=== PATIENT | male | born 1940 | race Caucasian/White ===

== ENCOUNTER 2017-02-10 14:35 | Inpatient (IN) | payer OTHER, MEDICARE ==
[2017-02-10] VITALS (12 sets, daily range): BP systolic 105–139; BP diastolic 54–68
[~2017-02-10] VITALS: Ht 165.1 cm; Wt 65.8 kg
--- NOTE | ~2017-02-10 | HC ---
[facility] [place] [address] CONSULTATION Name: STEPHANIEOFELIA Room #: 302-P [facility] IN ..#: [id number] Admission: 02/10/17 Attend Phys: Tash Nuñez MD Discharge: Date of : 40 Report #: [id number] THIS REPORT FOR: //name// CC: Dr. Brock Farrar MD DATE OF SERVICE: 02/10/2017 HISTORY OF PRESENT ILLNESS: The patient is a 76-year-old gentleman with severe oxygen-dependent lung disease. He was admitted about a week ago with increasing shortness of breath and left-sided pneumonia. This was despite failed outpatient treatment with oral antibiotics. He had a nonproductive cough without hemostasis. No fevers or chills. During this hospitalization, he developed melanotic stools and over the past couple of days, he has received 5 units of packed red cells. He has developed increasing lower extremity edema in the setting of fluid resuscitation and volume expansion. His presenting EKG was normal with the exception of isolated atrial premature complexes and initial troponin was elevated at 0.16, consistent with supply demand mismatch. He does have a history of prior LAD stenting in 1997, by Dr. Hogan prior to his stenting procedure he had, what was described as fairly typical angina, he has had no recurrence of this. He denies orthopnea or paroxysmal nocturnal dyspnea. He denies recent fevers or chills. ALLERGIES: HE IS ALLERGIC TO RITUXAN. MEDICATIONS: Include aspirin 81 mg daily, atorvastatin 20 mg daily, DuoNeb, Imbruvica 420 mg daily, losartan 50 mg daily, and metoprolol 50 mg daily. PAST MEDICAL HISTORY: Medical records have been reviewed and include a history of dyslipidemia, CLL, coronary stenting, and steroid-induced diabetes, he has not been on steroids recently. SOCIAL HISTORY: Significant former smoker. He is retired from variety of jobs. FAMILY HISTORY: Unremarkable for premature coronary artery disease that is notable for diabetes and cancer. REVIEW OF SYSTEMS: All systems negative except as that noted above. PHYSICAL EXAMINATION: GENERAL: Reveals a dyspneic gentleman who is although talking in full sentences. VITAL SIGNS: Blood pressure is 139/68, heart rate of 150 [place] [address] CONSULTATION Name: OFELIA BROWN Room #: [address] [place] [address] [place] ..#: [id number] Admission: 02/10/17 Attend Phys: Tash Nuñez MD Discharge: Date of : 40 Report #: [id number] afebrile. HEENT: There are neither xanthelasma, subcutaneous xanthomata, oral mucosa or digital cyanosis or kyphoscoliosis present. CHEST: Reveals diminished breath sounds at both bases, especially at the left base, a few expiratory wheezes. CARDIAC: Regular rate and rhythm with a normal S1, S2. ABDOMEN: Soft and nontender. EXTREMITIES: Reveal 1-2+ pedal edema. Radial pulses are 2+. NEUROLOGIC: He is alert with a nonfocal exam. LABORATORY DATA: EKG demonstrates sinus rhythm with atrial premature complexes. An echocardiogram from 2015 demonstrated an ejection fraction of 50%, significant valvular disease was absent. IMPRESSION: 1. Chronic obstructive pulmonary disease exacerbation; acute on chronic hypoxemic respiratory failure. 2. Pneumonia. 3. Gastrointestinal bleed with hemodynamic compromise, recent five unit transfusion. 4. Acute on chronic diastolic heart failure. 5. Dyslipidemia. 6. Chronic lymphocytic leukemia. RECOMMENDATIONS: 1. Intravenous diuretics. 2. Continued use of metoprolol and losartan. 3. Echocardiogram with Doppler. 4. GI and pulmonary evaluations. 5. At this point, I do not suspect an acute coronary syndrome or ischemic event. Thank you for asking me to participate in the care of this very ill gentleman. <ELECTRONICALLY SIGNED> By: Jassi Amos MD, FACC 02/14/17 1641 [id number] Jassi Amos MD, FACC /nt
--- NOTE | ~2017-02-10 | HC ---
[facility] [place] [address] CONSULTATION Name: STEPHANIEOFELIA A Room #: 237-P [facility] IN M.R.#: [id number] Admission: 02/10/17 Attend Phys: Tash Nuñez MD Discharge: Date of : 40 Report #: [id number] THIS REPORT FOR: //name// CC: Diane Amos MD [facility] Brock Correia MD DATE OF SERVICE: 02/11/2017 HISTORY OF PRESENT ILLNESS: The patient is a 76-year-old male who was admitted on 02/10/2017. He was transferred from [facility] where he was hospitalized for a GI bleed, pneumonia and respiratory failure. He is being treated down there with antibiotics, which included Zosyn and vancomycin. He has a history of COPD and is typically on 5 liters of nasal canula oxygen. He reportedly had black stools and progressive anemia at [facility] and actually had 5 units of packed cells transfused. His hemoglobin here at [facility] was 7.2 yesterday and this dropped to 5.6 this morning. He is currently in the process of receiving 2 units of packed cells. The patient is currently in the ICU. He denies any chest pain, no significant shortness of breath. He is currently on 4 liters of nasal canula oxygen. He denies any abdominal pain. He reportedly has had a history of peptic ulcer disease. He had been taking aspirin. He has a history of coronary artery disease with a history of stent placement in the past. He denies any abdominal pain at this time. He does not believe he has had melenic stools recently. He also has a history of CLL. He does complain of lower extremity edema. PAST MEDICAL HISTORY: COPD, history of GI bleed, history of SIADH, CLL, lower extremity edema, previous cardiac stent placement x 2, previous cholecystectomy, hyperlipidemia, rectal prolapse 2011, cataract surgery. ALLERGIES: To RITUXAN. SOCIAL HISTORY: Former smoker. He does report occasional alcohol use. REVIEW OF SYSTEMS: As per HPI. FAMILY HISTORY: Negative for colon cancer. CURRENT MEDICATIONS: Methylprednisolone, Zosyn, Protonix drip has been started, metoprolol, vancomycin, losartan, Lasix, albuterol, Atrovent, atorvastatin, Tylenol p.r.n., docusate p.r.n., nitroglycerin p.r.n., magnesium oxide. PHYSICAL EXAMINATION: [facility] [address] [place] [address] CONSULTATION Name: OFELIA BROWN Room #: 237-P [facility] IN [facility]#: [id number] Admission: 02/10/17 Attend Phys: Tash Nuñez MD Discharge: Date of : 40 Report #: [id number] VITAL SIGNS: Temperature is 97.6, pulse 102, blood pressure 117/56, respiratory rate is 29, O2 sats are 95% on 4 liters. GENERAL: He is alert and oriented x 3 in no acute distress. HEENT: Sclerae nonicteric. Oropharynx clear. NECK: Supple, without lymphadenopathy. CARDIOVASCULAR: Regular rate and rhythm. CHEST: With decreased breath sounds bilaterally. ABDOMEN: Soft. He is nontender, nondistended, normoactive bowel sounds. EXTREMITIES: +2 pitting edema in the lower extremities bilaterally. LABORATORY DATA: Sodium 141, potassium 4.0, chloride 106, bicarbonate 30, BUN 108, creatinine 1.7, glucose 119, AST 16, total bili 0.5, calcium 7.5, magnesium 1.8, alkaline phosphatase 22, ALT 12, total protein 3.4, albumin 1.4. INR is 1.1. The troponin was old. WBC is 20.8, hemoglobin 5.6, MCV is 88.7, platelet count is 139. Chest x-ray today, left basilar pneumonia is slightly worse with no significant pleural effusion seen. ASSESSMENT AND PLAN: Anemia, gastrointestinal bleed. The patient has had a drop in hemoglobin, history of melenic type stools apparently at [facility]. He has now been transfused again. I would recommend proceeding with an upper endoscopy today for further evaluation. Suspect upper gastrointestinal bleed. The patient states he had a colonoscopy 4 years ago and was reportedly negative. We will make further recommendations after endoscopy. In the meantime, continue PPI drip and monitoring hemoglobin closely. Thank you for allowing me to participate in his care. <ELECTRONICALLY SIGNED> By: Fausto David MD 02/12/17 1621 1025 1601 Fausto David MD /nt
--- NOTE | ~2017-02-10 | P ---
[facility] [place] [address] PROCEDURE REPORT Name: STEPHANIEOFELIA A Room #: 237-P ADM IN M.R.#: [id number] Admission: 02/10/17 Attend Phys: Tash Nñuez MD Discharge: Date of : 40 Report #: [id number] THIS REPORT FOR: //name// CC: Diane Amos MD [facility] Brock Correia MD DATE OF SERVICE: 02/11/2017 PROCEDURE PERFORMED: Upper endoscopy. HISTORY OF PRESENT ILLNESS: The patient is a 76-year-old male with a history of anemia, COPD, CLL, recent pneumonia. He is on 4 liters of nasal canula oxygen at this time. He was transferred from [facility] and apparently was transfused 5 units of packed cells during that hospitalization. His hemoglobin here dropped from 7 to 5.6 earlier this morning. He is being transfused at this time. He is currently in the ICU, denies any abdominal pain. He does have a history of peptic ulcer disease. He is now on a Protonix drip. DESCRIPTION OF PROCEDURE: The risks and benefits of the procedure were explained to the patient, those risks including but not limited to bleeding, perforation, the risk of sedation. He understood these risks and gave informed consent. The procedure was performed in the ICU. Anesthesia was given using propofol and Versed. Next, using a standard [employer] upper endoscope, the scope was placed in the patient's mouth and advanced under direct vision through the esophagus, stomach and into the second portion of the duodenum. The upper and mid esophagus were normal in appearance; however, in the distal esophagus, there was an area of what appears to be an esophageal varix. They were not columns that are typically seen but distinct area in the distal esophagus. There was no red adri sign. There was no evidence of bleeding, no clot was noted, otherwise GE junction was normal. Overall, the gastric mucosa in the fundus was normal; however, in the body and antrum, multiple ulcers were seen. Most of these ulcers were 3-4 mm in size; however, there was a single large ulcer that was approximately 2 cm in the antrum. All these ulcers were clean white based, none of which showed any visible vessel or clot. Of note, there was no blood throughout the exam today. The pylorus was normal and patent. The duodenal bulb did show some mild duodenitis, but no ulceration. The first and second portion of the duodenum were normal. The scope was then withdrawn and the procedure terminated. The patient tolerated the procedure well. IMPRESSION: 1. Multiple gastric ulcers including one large antral ulcer, suspect this may be the source of recent gastrointestinal bleed. Of note, there was no bleeding [address] [address] PROCEDURE REPORT Name: OFELIA BROWN Room #: 237-P [facility] IN M.R.#: [id number] Admission: 02/10/17 Attend Phys: Tash Nuñez MD Discharge: Date of : 40 Report #: [id number] noted on exam today. 2. Esophageal varix, although this may have caused bleeding recently. There were no signs of recent bleeding; therefore, I did not place a band on the varix. 3. Mild duodenitis. 4. Otherwise, normal upper endoscopy. RECOMMENDATIONS: 1. Continue PPI drip. 2. We will add Carafate. 3. Continue to monitor hemoglobin closely. 4. We will start clear liquids today. Thank you for allowing me to participate in his care. <ELECTRONICALLY SIGNED> By: Fausto David MD 02/12/17 1621 1055 1801 Fausto David MD /nt
--- NOTE | ~2017-02-10 | 2DMMODE ---
[facility] [address] [place] [address] 2 D/M-MODE ECHOCARDIOGRAM Name: OFELIA BROWN Room #: 237-P [facility] IN ..#: [id number] Admission: 02/10/17 Attend Phys: Tash Nuñez MD Discharge: Date of : 40 Date of Service: 02/11/17 1114 Report #: [id number] THIS REPORT FOR: //name// APPROVED REPORT Study performed: 02/11/2017 08:04:00 EXAM: Comprehensive 2D, Doppler, and color-flow Echocardiogram Patient Location: ICU Room #: [facility] Other Information Study Quality: Adequate Indications COPD Diabetes Dyspnea CAD 2D Dimensions RVDd: 39.79 mm LVEF(%): 67.62 (>50%) IVSd: 8.58 (7-11mm) LVOT Diam: 19.63 (18-24mm) LVDd: 43.49 mm PWd: 9.25 (7-11mm) Ascending Ao: 32.67 (22-36mm) LVDs: 27.24 (25-40mm) Aortic Root: 34.68 mm IVC: 13.00 mm Medina's LVEF: 67.62 % Volumes Left Atrial Volume (Systole) Single Plane 4CH: 79.97 mL Single Plane 2CH: 47.93 mL Aortic Valve AoV Peak Fabio.: 1.78 m/s AO Peak Gr.: 12.66 mmHg LVOT Max P.64 mmHg LVOT Max V: 1.63 m/s OTTO Vmax: 2.77 cm2 Mitral Valve E/A Ratio: 0.5 MV Decel. Time: 235.70 ms MV E Max Fabio.: 0.67 m/s MV A Fabio.: 1.25 m/s [facility] [address] [address] 2 D/M-MODE ECHOCARDIOGRAM Name: OFELIA BROWN [facility] #: 237[facility] [id number] Admission: 02/10/17 Attend Phys: Tash Nuñez MD Discharge: Date of : 40 Date of Service: 02/11/17 1114 Report #: [id number] MV PHT: 68.35 ms IVRT: 107.27 ms Pulmonary Valve PV Peak Fabio.: 1.47 m/s PV Peak Gr.: 8.69 mmHg Pulmonary Vein P Vein S: 0.64 m/s P Vein A: 0.40 m/s P Vein D: 0.41 m/s P Vein A Dur.: 100.3 msec P Vein S/D Ratio: 1.56 Tricuspid Valve TR Peak Fabio.: 3.00 m/s RAP Estimate: 5.00 mmHg TR Peak Gr.: 36.05 mmHg PA Pressure: 41.00 mmHg Left Ventricle The left ventricle is normal size. There is normal LV segmental wall motion. There is normal left ventricular wall thickness. Left ventricular systolic function is hyperdynamic. LVEF is >70%. Grade I - abnormal relaxation pattern. Right Ventricle The right ventricle is normal size. The right ventricular systolic function is normal. Atria The left atrium size is normal. The right atrium size is normal. Aortic Valve The aortic valve is normal in structure. No aortic regurgitation is present. There is no aortic valvular stenosis. Mitral Valve The mitral valve is normal in structure. There is no mitral valve regurgitation noted. No evidence of mitral valve stenosis. Tricuspid Valve The tricuspid valve is normal in structure. There is mild tricuspid regurgitation. The right atrial pressure is estimated at 5 mmHg. There is mild pulmonary hypertension. Pulmonic Valve The pulmonary valve is normal in structure. There is no pulmonic valvular regurgitation. [address] [address] 2 D/M-MODE ECHOCARDIOGRAM Name: OFELIA BROWN Diane Room #: 237-P [facility] IN [facility]#: [id number] Admission: 02/10/17 Attend Phys: Tash Nuñez MD Discharge: Date of : 40 Date of Service: 02/11/17 1114 Report #: [id number] Great Vessels The aortic root is normal in size. IVC is normal in size and collapses >50% with inspiration. Pericardium There is no pericardial effusion. <Conclusion> Normal to hyperdynamic LV function, LVEF is >70%. There is normal LV segmental wall motion. The aortic valve is normal in structure. No aortic valvular stenosis. The mitral valve is normal in structure. No mitral insufficiency Pulmonary artery could not be reliably ascertained There is no pericardial effusion. <ELECTRONICALLY SIGNED> By: Jassi Amos MD, [facility] 02/11/17 1114 1114 1114 Jassi Amos MD, FACC /INF
--- NOTE | ~2017-02-10 | HC ---
[facility] [place] [address] CONSULTATION Name: OFELIA BROWN Room #: 237-P [facility] IN M.R.#: [id number] Admission: 02/10/17 Attend Phys: Otilio Velasco MD Discharge: Date of : 40 Report #: [id number] THIS REPORT FOR: //name// CC: Brock Velasco DATE OF SERVICE: 02/10/2017 REASON FOR CONSULTATION: Exacerbation of chronic obstructive pulmonary disease. IMPRESSION: 1. Exacerbation of chronic obstructive pulmonary disease. 2. Acute on chronic hypoxemic respiratory failure. 3. Left lower lobe pneumonia. 4. Acute on chronic diastolic heart failure. 5. Anasarca. 6. Gastrointestinal bleed. 7. Coronary artery disease. 8. Peripheral vascular disease with prior carotid stent. 9. Chronic lymphocytic leukemia. PLAN: We will try to decrease the steroids as quickly as possible, agree with Zosyn and vancomycin. We will do legionella, strep and MRSA screens. SCDs for DVT prophylaxis. May consider venous Dopplers of upper and lower extremities. HISTORY OF PRESENT ILLNESS: A 76-year-old male recently in the hospital at for pneumonia then was in for GI bleeding and pneumonia. He comes in now with increased wheezing, cough, shortness of breath. Found to have a hemoglobin of 7.5 today after 5 units of blood. PAST MEDICAL HISTORY: ALLERGIES: RITUXAN. PAST MEDICATIONS: Prednisone, cefuroxime, azithromycin, losartan. SOCIAL HISTORY: Positive tobacco. FAMILY HISTORY: Hypertension. REVIEW OF SYSTEMS: Increasing COPD, recurrent rectal prolapse, hyponatremia, CLL. The patient complains of edema, weakness. Decreased appetite, weight gain, decreased hearing, cough, shortness of breath, dyspnea on exertion, palpitations, regular heart rate, GI diarrhea, melena poor appetite. No dysuria. Positive muscle pain, rash, bruising. SURGERIES IN PAST: Include tonsillectomy, cholecystectomy, rectal prolapse [facility] [address] [place] [address] CONSULTATION Name: STEPHANIE,OFELIA A Room #: [facility] IN [facility]#: [id number] Admission: 02/10/17 Attend Phys: Otilio Velasco MD Discharge: Date of : 40 Report #: [id number] surgery, cataract surgery. FAMILY HISTORY: Heart disease, COPD, diabetes, hypertension, positive ETOH, . PHYSICAL EXAMINATION: VITAL SIGNS: Temperature 99, pulse 120, respirations 24, BP 139/68. EYES: Negative icterus. NECK: Negative JVD, diffuse edema. LUNGS: Wheeze bilaterally. HEART: Regular, tachycardic. ABDOMEN: Bowel sounds present. LABORATORY DATA: Chest x-ray showed left infiltrate. We will follow closely with you. By: 56 [id number] Sara Rivera MD /nt
[~2017-02-10 14:35] MED LIST: ADULT LOW DOSE81 MG PO; ALBUTEROL2.5 MG/0.1 INH; APHEN325 MG PO; ASPIRIN EC81 M1; AZITHROMYCIN 2250 MG PO; CEFTIN500 MG PO; COZAAR 50 MG TA50 M1 PO; DOCUSATE SODIU100 MG PO; HYZAAR 50-12.51 EACH PO; LIPITOR 10 MG10 M1; LIPITOR20 MG PO; LOPRESSOR 50 MG50 M1 PO; PREDNISONE 10 M10 M1 PO; PREDNISONE 20 M20 M1 PO; SIMETHICON CHEW80 M1 PO; TOPROL XL25 MG
[2017-02-10] MEDS ORDERED: NITROGLYCERIN0.4 MG SUBLING (18:50)
[2017-02-10] MEDS ORDERED: LOPRESSOR50 MG PO (18:50)
[2017-02-10 18:54] LABS: ABG SAMPLE TYPE ARTERIAL; BE(vivo) 1.3 mmol/L (-2 to +3); HCO3 27.1 mmol/L (22.0-26.0); LACTATE 0.84 mmol/L (0.5-2.0); O2(CT) 10.6 mL/dL (15.0-23.0); O2Hb 94.3 % (92.0-98.0); PCO2 49.8 mmHg (35.0-45.0); PO2 88.6 mmHg (80.0-100.0); pH 7.354 (7.360-7.450); sO2 96.3 % (92.0-98.0); tCO2 28.7 mmol/L (24.0-30.0)
[2017-02-10 18:55] LABS: STICK SITE R.RADIAL
[2017-02-10] MEDS ORDERED: LIPITOR 20 MG T20 M1 PO (18:55)
[2017-02-10] MEDS ORDERED: IMBRUVICA140 MG PO (18:55)
[2017-02-10 19:14] LABS: HEMOGLOBIN 7.2 gm/dL (14.0-18.0); RDW 15.8 % (10.5-14.5)
[2017-02-10 19:16] LABS: HEMATOCRIT 21.9 % (42.0-52.0); MCHC 32.9 g/dL (28.0-37.0); MCV 88.1 fL (80.0-100.0); RBC 2.49 mil/uL (4.50-6.00)
[2017-02-10 19:34] LABS: CALCIUM 7.9 mg/dL (8.5-10.1); CREATININE 1.7 mg/dL (0.7-1.3); POTASSIUM 4.6 mmol/L (3.5-5.1)
[2017-02-10 19:37] LABS: INR 1.1; PROTIME 11.3 Seconds (9.3-11.4)
[2017-02-10 19:46] LABS: ALBUMIN 1.7 g/dL (3.4-5.0); TOTAL BILIRUBIN 0.6 mg/dL (<0.1-1.0); TOTAL PROTEIN 4.1 g/dL (6.4-8.2)
[2017-02-11] VITALS (49 sets, daily range): BP systolic 74–122; BP diastolic 33–69
[2017-02-11 05:35] LABS: WBC 20.8 thou/uL (4.0-11.0)
[2017-02-11 05:37] LABS: MCH 29.3 pg (26.0-34.0); MCV 88.7 fL (80.0-100.0); PLATELET COUNT 139 thou/uL (150-400); RBC 1.93 mil/uL (4.50-6.00); RDW 15.6 % (10.5-14.5)
[2017-02-11 05:49] LABS: ALBUMIN 1.4 g/dL (3.4-5.0); CALCIUM 7.5 mg/dL (8.5-10.1); CREATININE 1.7 mg/dL (0.7-1.3); MAGNESIUM 1.8 mg/dL (1.8-2.4); TOTAL BILIRUBIN 0.5 mg/dL (<0.1-1.0); TOTAL PROTEIN 3.4 g/dL (6.4-8.2)
[2017-02-11 06:06] LABS: MANUAL DIFF YES
[2017-02-11 06:07] LABS: HEMOGLOBIN 5.6 gm/dL (14.0-18.0)
[2017-02-11 06:08] LABS: HEMATOCRIT 17.1 % (42.0-52.0)
[2017-02-11 09:16] LABS: ABSOLUTE NEUTROPHILS 9.2 thou/uL (1.4-8.2); METAMYELOCYTES 1 %; TOTAL CELL COUNT 100
[2017-02-11 09:30] LABS: ANISOCYTOSIS 2+; MACROCYTES 1+; MICROCYTES 1+; OVALOCYTES 1+; POLYCHROMASIA SLIGHT
[2017-02-11 15:49] LABS: HEMATOCRIT 24.6 % (42.0-52.0)
[2017-02-11 15:52] LABS: HEMOGLOBIN 8.5 gm/dL (14.0-18.0)
[2017-02-12] VITALS (23 sets, daily range): BP systolic 103–138; BP diastolic 48–85
[2017-02-12 04:17] LABS: HEMATOCRIT 23.5 % (42.0-52.0); RBC 2.76 mil/uL (4.50-6.00)
[2017-02-12 04:19] LABS: HEMOGLOBIN 8.1 gm/dL (14.0-18.0); MCH 29.2 pg (26.0-34.0); MCHC 34.2 g/dL (28.0-37.0); MCV 85.2 fL (80.0-100.0); RDW 15.7 % (10.5-14.5); WBC 17.8 thou/uL (4.0-11.0)
[2017-02-12 04:41] LABS: CALCIUM 7.7 mg/dL (8.5-10.1); CREATININE 1.7 mg/dL (0.7-1.3); POTASSIUM 3.7 mmol/L (3.5-5.1)
[2017-02-13 04:24] VITALS: BP 117/62
[2017-02-13 04:49] LABS: HEMATOCRIT 21.8 % (42.0-52.0); HEMOGLOBIN 7.5 gm/dL (14.0-18.0)
[2017-02-13 04:55] LABS: CALCIUM 7.3 mg/dL (8.5-10.1); CREATININE 1.6 mg/dL (0.7-1.3); POTASSIUM 3.4 mmol/L (3.5-5.1)
[2017-02-13 09:47] VITALS: BP 115/59
[2017-02-13 16:18] VITALS: BP 120/64
[2017-02-13 18:57] VITALS: BP 130/56
[2017-02-14 02:30] VITALS: BP 145/72
[2017-02-14 06:27] LABS: HEMATOCRIT 23.4 % (42.0-52.0); HEMOGLOBIN 7.8 gm/dL (14.0-18.0); MCHC 33.2 g/dL (28.0-37.0); MCV 87.2 fL (80.0-100.0); PLATELET COUNT 147 thou/uL (150-400); RBC 2.68 mil/uL (4.50-6.00); RDW 15.4 % (10.5-14.5); WBC 16.4 thou/uL (4.0-11.0)
[2017-02-14 06:28] LABS: MANUAL DIFF YES
[2017-02-14 06:30] LABS: CALCIUM 7.9 mg/dL (8.5-10.1); CREATININE 1.6 mg/dL (0.7-1.3); POTASSIUM 3.7 mmol/L (3.5-5.1)
[2017-02-14 07:44] LABS: ABSOLUTE NEUTROPHILS 8.7 thou/uL (1.4-8.2); TOTAL CELL COUNT 100
[2017-02-14 07:46] LABS: ANISOCYTOSIS 2+; MACROCYTES 1+; MICROCYTES 1+; POLYCHROMASIA SLIGHT
[2017-02-14 08:41] VITALS: BP 123/67
[2017-02-14] MEDS ORDERED: DOXYCYCLINE 10100 MG PO (11:37)
[2017-02-14] MEDS ORDERED: METOPROLOL SUCC25 M1 PO (11:37)
[2017-02-14] MEDS ORDERED: K-DUR 20 MEQ T20 MEQ PO (11:37)
[2017-02-14] MEDS ORDERED: CARAFATE 1 GM TA1 G1 PO (11:37)
[2017-02-14] MEDS ORDERED: PROTONIX40 M1 PO (11:37)
[2017-02-14] MEDS ORDERED: TORSEMIDE20 MG PO (11:37)
[2017-02-14] MEDS ORDERED: PREDNISONE 10 M10 MG PO (11:44)
[2017-02-14 12:51] VITALS: BP 123/67
[2017-02-14 15:53] VITALS: BP 112/66
[2017-02-14 20:00] VITALS: BP 112/69
[2017-02-15 04:00] VITALS: BP 113/64
[2017-02-15 06:45] LABS: HEMATOCRIT 23.8 % (42.0-52.0); HEMOGLOBIN 7.9 gm/dL (14.0-18.0)
[2017-02-15 08:08] VITALS: BP 99/58
[2017-02-15 14:19] VITALS: BP 123/67
== END 2017-02-15 14:40 | disposition home health service (06) | DRG 377 ==
LOC: 4W 14:35 → ICU 17:51 → 3N 02-12 22:34
PROVIDERS: Hospitalist; Internal Medicine; Internal Medicine Endocrinology, Diabetes & Metabolism; Internal Medicine Gastroenterology; Internal Medicine Pulmonary Disease; Specialist
PROC: 30233N1 Transfusion of Nonautologous Red Blood Cells into Peripheral Vein, Percutaneous Approach (ICD-10-PCS; principal; 2017-02-11)
PROC: 0DJ08ZZ Inspection of Upper Intestinal Tract, Via Natural or Artificial Opening Endoscopic (ICD-10-PCS; 2017-02-11)
DX: K92.2 Gastrointestinal hemorrhage, unspecified (principal); I50.33 Acute on chronic diastolic (congestive) heart failure; J96.21 Acute and chronic respiratory failure with hypoxia; J18.1 Lobar pneumonia, unspecified organism; J18.9 Pneumonia, unspecified organism; I21.3 ST elevation (STEMI) myocardial infarction of unspecified site; J44.1 Chronic obstructive pulmonary disease with (acute) exacerbation; C91.10 Chronic lymphocytic leukemia of B-cell type not having achieved remission; J44.0 Chronic obstructive pulmonary disease with (acute) lower respiratory infection; N17.9 Acute kidney failure, unspecified; E46 Unspecified protein-calorie malnutrition; I25.10 Atherosclerotic heart disease of native coronary artery without angina pectoris; D64.9 Anemia, unspecified; E78.5 Hyperlipidemia, unspecified; Z66 Do not resuscitate; E11.65 Type 2 diabetes mellitus with hyperglycemia; E11.51 Type 2 diabetes mellitus with diabetic peripheral angiopathy without gangrene; K25.9 Gastric ulcer, unspecified as acute or chronic, without hemorrhage or perforation; Z88.8 Allergy status to other drugs, medicaments and biological substances; Z98.62 Peripheral vascular angioplasty status; Z87.891 Personal history of nicotine dependence; Z98.42 Cataract extraction status, left eye; Z79.899 Other long term (current) drug therapy; Z90.49 Acquired absence of other specified parts of digestive tract; Z83.6 Family history of other diseases of the respiratory system; Z82.49 Family history of ischemic heart disease and other diseases of the circulatory system; Z83.3 Family history of diabetes mellitus; Z80.9 Family history of malignant neoplasm, unspecified; Z98.41 Cataract extraction status, right eye; Z68.24 Body mass index [BMI] 24.0-24.9, adult
CPT/HCPCS: 10078; 10096; 27000; 62110; 62900; 85076

== ENCOUNTER 2017-04-25 11:17 | Inpatient (IN) | payer OTHER, MEDICARE ==
[~2017-04-25] VITALS: Ht 162.6 cm; Wt 53.5 kg
--- NOTE | ~2017-04-25 | S ---
[facility] [place] [address] SURGICAL PATH RPT PROCEDURE Name: OFELIA BROWN Room #: 311-P [facility] IN M.R.#: [id number] Admission: 04/25/17 Date of : 40 Discharge: 05/01/17 Report #: [id number] Path Case #: [id number] PATHOLOGY REPORT COLLECTION DATE: 05/01/2017 RECEIVED DATE: 05/01/2017 SUBMITTING PHYS: Dr. Brock Fuentes OTHER PHYS: Dr. 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 (see comment) (CLW:wade; 05/03/2017) COMMENT: Due to the patient's history and radiographic findings of a lung mass, properly controlled immunohistochemical stains are performed. Block A1 P40 - Tumor cells reactive TTF-1 - Tumor cells nonreactive S100 - Tumor cells nonreactive The patient's history of a lung mass is noted. The findings are diagnostic of focally keratinizing moderately differentiated squamous cell carcinoma. Primary versus metastatic lesions cannot be differentiated histologically. Clinical and radiographic correlation is required. The H and E stained slides are co-reviewed with Dr. Ysabel Wen. The case is discussed with Dr. Nino Farrar on 05/03/2017 at approximately 2:30 PM. Due to the patient's history of CLL, flow cytometric immunophenotypic analysis was performed at [facility]. The diagnosis is "immunoglobulin light chain class restricted B-cells detected; 2%, CD19, CD5 and surface kappa light chain; negative CD10". There are 7.4% lymphocytes. Of the lymphocytes, there are 13% T-cells with a CD4/CD8 ratio of 0.4 and no aberrant T-cell antigen expression. There is 78% monoclonal kappa B-cells. Please see separate flow cytometry report from [facility] ([id number]). This is likely peripheral blood contamination of the specimen as there are minimal lymphocytes identified histologically. [place] [address] SURGICAL PATH RPT PROCEDURE Name: OFELIA BROWN Room #: 311-P [facility] IN [facility]#: [id number] Admission: 04/25/17 Date of : 40 Discharge: 05/01/17 Report #: [id number] Path Case #: [id number] (CLW:wade; 05/03/2017) PATHOLOGIST: Gissel Jeffries M.D. REPORT ELECTRONICALLY SIGNED BY: Gissel Jeffries M.D. DATE/TIME: 05/03/2017 21:57 * * * * * * * * * * * * GROSS PATHOLOGY: Received in formalin labeled "Ofelia Brown, right scalp mass," are six distinct needle cores of myles-white, friable soft tissue ranging from 0.3 to 1.1 cm in length, which are submitted entirely in cassette A1. (JWP; 05/01/2017) CLINICAL HISTORY: Hypoxia INITIAL CPT CODE(S): A; 84735, 04243, 86804, 40785 Professional services performed by [facility] at [facility] [address], [place] [address] Technical services performed by [facility] at [address] [place] [address], [address], [place] [address]. [facility] [place] [address] PHONE: [phone] DIRECTOR: Hamlet George M.D. * * * END OF REPORT * * *
--- NOTE | ~2017-04-25 | HC ---
[facility] [place] [address] CONSULTATION Name: OFELIA BROWN Room #: 311-P ADM IN .R.#: [id number] Admission: 04/25/17 Attend Phys: Ever Alaniz MD Discharge: Date of : 40 Report #: [id number] THIS REPORT FOR: //name// CC: Brock Del Real DATE OF SERVICE: 04/26/2017 DATE OF ADMISSION: 04/25/2017. DATE OF SERVICE: 04/26/2017. ATTENDING PHYSICIAN: Dr. Alaniz. REASON FOR EVALUATION: Pneumonitis. HISTORY OF PRESENT ILLNESS: Chart reviewed, patient examined. A 76-year-old male with extensive medical history. He has O2-requiring COPD, also has chronic lymphocytic leukemia who has been ill for a number of days. He is unable to give too many details due to some really marked encephalopathy, although it has improved since admission. Apparently, he has had fevers, presented with an enlarging right postauricular mass. There is a concern about a metastatic disease. He also has had imaging of the chest which shows possible infiltrates versus masses that may well be malignancy as well. He noted he has had pneumonia 6 times. He states his appetite has been fair. His weight has been stable. He has been started empirically on vancomycin, piperacillin/tazobactam. Previous sputum in January of this year with growth of Escherichia coli. ALLERGIES: Listed to RITUXAN. MEDICATIONS: Include methylprednisolone, sucralfate, vancomycin, Zosyn, and ipratropium-albuterol inhaler. PAST MEDICAL HISTORY: As noted above. He has chronic lymphocytic leukemia; history of chronic obstructive pulmonary disease, O2 requiring; hyperlipidemia; hypertension. He has known atherosclerotic coronary artery disease with previous stenting, previous cholecystectomy. SOCIAL HISTORY: Former smoker, rare ethanol. FAMILY HISTORY: Noncontributory. REVIEW OF SYSTEMS: Denies any abdominal-related complaints. PHYSICAL EXAMINATION: [facility] [address] [place] [address] CONSULTATION Name: OFELIA BROWN Diane Room #: 311-P [facility] IN [facility]#: [id number] Admission: 04/25/17 Attend Phys: Ever Alaniz MD Discharge: Date of : 40 Report #: [id number] GENERAL: He appears chronically ill and undernourished. He is mildly encephalopathic. VITAL SIGNS: Temperature 98.5, pulse 90, respirations 22, blood pressure 118/67. SKIN: Warm, dry, no rashes. HEENT: Remarkable for large subcutaneous mass involving the postauricular site on the right, appears to have somewhat necrotic, superficial area noted at the center of the dome shaped at this point. It is hard. LUNGS: Scattered coarse breath sounds. HEART: Regular, soft systolic murmur. ABDOMEN: Soft, nontender, nondistended. EXTREMITIES: No cyanosis. GENITOURINARY: Deferred. RECTAL: Deferred. LABORATORY AND DIAGNOSTIC DATA: Surveillance for methicillin-resistant Staphylococcus aureus was negative. Electrolytes: Sodium 142, potassium 4.7, chloride 99, bicarbonate is 44, anion gap is less than 0, BUN and creatinine 24 and 1.0, glucose of 181, calcium elevated at 11.5. Estimated GFR of 73. ABGs: pH 7.410, pCO2 of 66.9, pO2 of 58.3, that was on 5.5 liters. Lactate of 2.09. CBC: White count of 3.0, H and H 7.0 and 23.4, platelets of 122. Chest x-ray, extensive bleb and bulla formation, ill-defined infiltrates, lingula on the left and also the right lower lobe. CT chest showed an irregular density, possible mass. In the lingular site, there was a rounded mass at the medial right upper lobe. Albumin is 3.4. BNP elevated at 1105. ASSESSMENT: Severe underlying pulmonary disease complicated by what appears to be an inflammatory process, I cannot entirely exclude any pneumonitis, certainly at risk for aspiration given his altered mental status. May well have a multifactorial etiology including malignancy. He appears to be in poor health status. At this point, we will continue combination therapy evaluation including probable biopsy, would expect to work on the margins given, I suspect, the irreversible nature of many of these disease processes. By: 1325 [id number] Jerrod Gracia MD /nt
--- NOTE | ~2017-04-25 | HC ---
[facility] [place] [address] CONSULTATION Name: STEPHANIEOFELIA Room #: 311-P [facility] IN .R.#: [id number] Admission: 04/25/17 Attend Phys: Ever Alaniz MD Discharge: Date of : 40 Report #: [id number] THIS REPORT FOR: //name// CC: MANOJ Pires DATE OF SERVICE: 04/25/2017 REFERRAL PHYSICIAN: Ever Alaniz MD. REASON FOR REFERRAL: Hypoxia. HISTORY OF PRESENT ILLNESS: The patient is a 76-year-old white male who was admitted with hypoxia. A pulmonary consultation was requested. The patient has COPD. He is normally followed by Dr. Frank Del Real in the office. He has chronic hypoxic respiratory failure, on 2 liters of O2. He has also been followed at [facility] for chronic lymphocytic leukemia. He was seen at the cancer clinic earlier today. He was found to be hypoxic with saturation in the 60%. He was referred to [facility] for further evaluation. He is currently being evaluated with a mass on his scalp. He is also known to have a lung mass. Currently, he is somewhat alert, but appears to be confused at times. He denies any chest pain or dyspnea. CT chest was reviewed, full final pending. It shows bullous disease bilaterally, left upper lobe infiltrates along with lung densities noted. PAST MEDICAL HISTORY: Notable for COPD, chronic hypoxic respiratory failure, on chronic O2 at 2 liters, chronic lymphocytic leukemia, scalp mass with history of apparent lung mass, coronary artery disease, undergoing stent placement in the past, and hyperlipidemia. PAST SURGICAL HISTORY: Status post cholecystectomy, tonsillectomy, and rectal prolapse surgery. ALLERGIES: Allergies to RITUXAN, which causes severe bradycardia. MEDICATIONS: Home medication list reviewed. This includes metoprolol, K-Dur, torsemide, Carafate, doxycycline, Protonix, prednisone 10 mg once a day, and [facility] [address] [place] [address] CONSULTATION Name: OFELIA BROWN Room #: 311-P [facility] IN [facility].#: [id number] Admission: 04/25/17 Attend Phys: Ever Alaniz MD Discharge: Date of : 40 Report #: [id number] nebulized albuterol q.4 hours. FAMILY HISTORY: Noncontributory. SOCIAL HISTORY: The patient has smoked, but quit years ago. He has a history of alcohol use. REVIEW OF SYSTEMS: As mentioned above is otherwise limited as the patient is not a reliable historian. PHYSICAL EXAMINATION: GENERAL: He is awake, but appears mildly distressed. VITAL SIGNS: Temperature is 98 degrees Fahrenheit, pulse is 93, respiratory rate is 24, blood pressure is 122/60 mmHg, and saturation is 100%. HEENT: Normocephalic. There is a large scalp mass in the right occipital area. Skin around that area appears to be erythematous. Surgical scars are seen on the top of the scalp. NECK: Supple, without lymphadenopathy or thyromegaly. CHEST: Breath sounds are fair. Air movements are decreased. No obvious wheezes or rales. CARDIOVASCULAR: Heart sounds are distant. No obvious murmurs or gallop. Pulses are 2+/4+ bilaterally. ABDOMEN: Soft and nontender. No organomegaly or masses felt. GENITOURINARY AND RECTAL: Deferred. EXTREMITIES: There is no edema, cyanosis, or clubbing. LABORATORY DATA: CT chest angiogram was reviewed. Final report is pending. There are bullous changes bilaterally. Left mid lung field infiltrates and densities also noted along with questionable left hilar mass. Portable chest x-ray shows ill-defined infiltrates seen in the left lower lung field area. BNP is 1100. Ultrasound of the lower extremity was negative for DVT. D-dimer was 0.32. Arterial blood gas on 2 liters revealed pH of 7.39, pCO2 of 67, and pO2 of 42. Electrolytes unremarkable. Creatinine is normal. Bicarbonate was 45. WBC 5100, hemoglobin is 8.3, and platelets are normal. IMPRESSION: 1. Acute on chronic hypercapnic hypoxic respiratory failure in this 76-year-old white male. He has a history of chronic obstructive pulmonary disease. CT chest shows ill-defined densities and infiltrates. Exacerbation of chronic obstructive pulmonary disease along with possible pneumonia is suspected. 2. Infiltrates/densities. Presume pneumonia in this immunocompromised patient. 3. History of chronic lymphocytic leukemia, now with a scalp mass along with lung densities. We will need to review records from [facility] for further details. 4. Chronic obstructive pulmonary disease with exacerbation. Severity is unknown. Presume the patient has severe impairment given chronic hypoxic [address] [address] CONSULTATION Name: STEPHANIEOFELIA Room #: 311-P ADM IN ..#: [id number] Admission: 04/25/17 Attend Phys: Ever K. Alaniz, MD Discharge: Date of : 40 Report #: [id number] respiratory failure. 5. Coronary artery disease with prior stent. 6. Medical directive: Do not resuscitate. RECOMMENDATIONS: Agree with ruling out pulmonary embolus. CT chest angiogram results are pending. For now, we would recommend corticosteroids, bronchodilators, and broad-spectrum antibiotics for this patient. With his immunocompromised state, I will broaden antibiotic coverage. Zosyn and vancomycin will be utilized. DVT and GI prophylaxis will be addressed. We will also request records for review regarding his oncologic issues. Thank you for this consultation. By: [id number] QI Archuleta /padmini
--- NOTE | ~2017-04-25 | EKG ---
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: PALLAVI : 1940 Requested By: David Pearl Order Number: [id number] MD: Jassi Amos Measurements Intervals [place] Rate: 98 P: 62 DE: 195 QRS: -66 QRSD: 123 T: 55 QT: 384 QTc: 491 Interpretive Statements Sinus tachycardia Possible septal infarct, age indeterminate Repolarization abnormality no previous ECGs available for comparison Electronically Signed On 04-29-2017 13:21:41 CDT by Jassi Amos [email or web address] <ELECTRONICALLY SIGNED> By: Jassi Amos MD, [facility] 04/29/17 1321 D: [id number] Jassi Amos MD, FAC /EPI
[~2017-04-25 11:17] MED LIST changes: +CARAFATE 1 GM TA1 G1 PO; +DOXYCYCLINE 10100 MG PO; +IMBRUVICA140 MG PO; +K-DUR 20 MEQ T20 MEQ PO; +LIPITOR 20 MG T20 M1 PO; +LOPRESSOR50 MG PO; +METOPROLOL SUCC25 M1 PO; +NITROGLYCERIN0.4 MG SUBLING; +PREDNISONE 10 M10 MG PO; +PROTONIX40 M1 PO; +TORSEMIDE20 MG PO
[2017-04-25 11:20] VITALS: BP 123/84
[2017-04-25 11:48] LABS: BUN 21 mg/dL (7-18); CHLORIDE 99 mmol/L (98-107); GLUCOSE 131 mg/dL (74-106); POTASSIUM 4.4 mmol/L (3.5-5.1); SODIUM 143 mmol/L (136-145)
[2017-04-25 11:50] LABS: ANION GAP < 0 mmol/L (7-16)
[2017-04-25 11:51] LABS: CALCIUM 12.2 mg/dL (8.5-10.1); CO2 45 mmol/L (21-32)
[2017-04-25 11:54] LABS: ABSOLUTE NEUTROPHILS 3.1 thou/uL (1.4-8.2); BASOPHILS 0.2 % (0.0-2.0); EOSINOPHILS 0.4 % (0.0-3.0); HEMATOCRIT 27.7 % (42.0-52.0); HEMOGLOBIN 8.3 gm/dL (14.0-18.0); LYMPHOCYTES 32.8 % (24.0-44.0); MCH 22.8 pg (26.0-34.0); MCHC 29.9 g/dL (28.0-37.0); MCV 76.3 fL (80.0-100.0); MONOCYTES 7.1 % (1.0-8.0); PLATELET COUNT 139 thou/uL (150-400); POLYS 59.5 % (36.0-66.0); RBC 3.63 mil/uL (4.50-6.00); RDW 17.5 % (10.5-14.5); WBC 5.1 thou/uL (4.0-11.0)
[2017-04-25 11:56] LABS: MANUAL DIFF NO
[2017-04-25 11:57] LABS: TROPONIN-I < 0.04 ng/mL (<0.04-0.07)
[2017-04-25 11:59] LABS: APTT 23.6 Seconds (24.5-32.8); PROTIME 10.1 Seconds (9.3-11.4)
[2017-04-25 12:05] VITALS: BP 144/63
[2017-04-25 12:25] LABS: ABG SAMPLE TYPE ARTERIAL; HCO3 40.8 mmol/L (22.0-26.0); LACTATE 1.23 mmol/L (0.5-2.0); O2(CT) 9.4 mL/dL (15.0-23.0); O2Hb 76.6 % (92.0-98.0); PCO2 67.7 mmHg (35.0-45.0); PO2 42.9 mmHg (80.0-100.0); STICK SITE R.RADIAL; pH 7.398 (7.360-7.450); sO2 76.5 % (92.0-98.0); tCO2 42.9 mmol/L (24.0-30.0)
[2017-04-25 13:52] VITALS: BP 115/50
[2017-04-25 14:05] VITALS: BP 122/60
[2017-04-25 15:20] VITALS: BP 122/60
[2017-04-25] MEDS ORDERED: PROTONIX40 M1 PO (16:27)
[2017-04-25] MEDS ORDERED: COZAAR 25 MG TA25 M1 PO (16:28)
[2017-04-25 19:49] VITALS: BP 117/63
[2017-04-26 00:30] VITALS: BP 119/62
[2017-04-26 03:37] VITALS: BP 112/62
[2017-04-26 06:20] LABS: HEMATOCRIT 23.4 % (42.0-52.0); MCH 22.7 pg (26.0-34.0); MCHC 29.8 g/dL (28.0-37.0); MCV 76.2 fL (80.0-100.0); RBC 3.07 mil/uL (4.50-6.00); RDW 17.9 % (10.5-14.5)
[2017-04-26 06:25] LABS: ABG SAMPLE TYPE ARTERIAL; BE(vivo) 15.1 mmol/L (-2 to +3); HCO3 41.5 mmol/L (22.0-26.0); LACTATE 2.09 mmol/L (0.5-2.0); O2(CT) 9.2 mL/dL (15.0-23.0); O2Hb 87.8 % (92.0-98.0); PCO2 66.9 mmHg (35.0-45.0); PO2 58.3 mmHg (80.0-100.0); STICK SITE R.RADIAL; sO2 89.4 % (92.0-98.0); tCO2 43.5 mmol/L (24.0-30.0)
[2017-04-26 06:33] LABS: ANION GAP < 0 mmol/L (7-16); BUN 24 mg/dL (7-18); CALCIUM 11.5 mg/dL (8.5-10.1); CHLORIDE 99 mmol/L (98-107); CO2 44 mmol/L (21-32); GLUCOSE 181 mg/dL (74-106); POTASSIUM 4.7 mmol/L (3.5-5.1); SODIUM 142 mmol/L (136-145)
[2017-04-26 08:00] VITALS: BP 118/67
[2017-04-26 16:00] VITALS: BP 112/65
[2017-04-26 20:40] VITALS: BP 122/64
[2017-04-27 05:40] VITALS: BP 122/58
[2017-04-27 06:45] LABS: HEMATOCRIT 21.1 % (42.0-52.0); HEMOGLOBIN 6.5 gm/dL (14.0-18.0); MCH 23.1 pg (26.0-34.0); MCV 74.3 fL (80.0-100.0); RBC 2.84 mil/uL (4.50-6.00); RDW 18.2 % (10.5-14.5); WBC 5.7 thou/uL (4.0-11.0)
[2017-04-27 06:55] LABS: ANION GAP < 0 mmol/L (7-16); BUN 30 mg/dL (7-18); CALCIUM 11.1 mg/dL (8.5-10.1); CHLORIDE 98 mmol/L (98-107); CO2 42 mmol/L (21-32); CREATININE 1.2 mg/dL (0.7-1.3); GLUCOSE 158 mg/dL (74-106); POTASSIUM 4.3 mmol/L (3.5-5.1); SODIUM 138 mmol/L (136-145)
[2017-04-27 07:37] VITALS: BP 143/72
[2017-04-27 09:04] LABS: % SATURATION 4 % (20-39); IRON 10 ug/dL (65-175); TIBC 284 ug/dL (250-450); UIBC 274 ug/dL
[2017-04-27 09:31] LABS: FOLIC ACID 12.9 ng/mL (8.6-58.9)
[2017-04-27 15:53] VITALS: BP 120/64
[2017-04-27 19:45] VITALS: BP 128/63
[2017-04-28 02:56] LABS: WBC 4.7 thou/uL (4.0-11.0)
[2017-04-28 02:59] LABS: HEMATOCRIT 20.8 % (42.0-52.0); MCH 22.7 pg (26.0-34.0); MCHC 30.3 g/dL (28.0-37.0); RBC 2.77 mil/uL (4.50-6.00); RDW 18.1 % (10.5-14.5)
[2017-04-28 03:06] LABS: CALCIUM 10.3 mg/dL (8.5-10.1); POTASSIUM 4.1 mmol/L (3.5-5.1)
[2017-04-28 03:07] LABS: HEMOGLOBIN 6.3 gm/dL (14.0-18.0)
[2017-04-28 03:58] VITALS: BP 128/69
[2017-04-28 08:00] VITALS: BP 139/80
[2017-04-28 14:17] VITALS: BP 118/64; BP 125/62
[2017-04-28 16:57] VITALS: BP 118/64; BP 146/75; BP 146/83
[2017-04-28 19:45] VITALS: BP 129/75
[2017-04-29] VITALS (7 sets, daily range): BP systolic 122–148; BP diastolic 60–81
[2017-04-29 06:09] LABS: HEMATOCRIT 28.9 % (42.0-52.0); MCH 23.5 pg (26.0-34.0); MCHC 31.1 g/dL (28.0-37.0); MCV 75.8 fL (80.0-100.0); RBC 3.82 mil/uL (4.50-6.00); RDW 17.1 % (10.5-14.5); WBC 6.7 thou/uL (4.0-11.0)
[2017-04-29 06:18] LABS: CALCIUM 10.3 mg/dL (8.5-10.1); POTASSIUM 3.7 mmol/L (3.5-5.1)
[2017-04-30] VITALS (7 sets, daily range): BP systolic 130–149; BP diastolic 66–77
[2017-04-30 04:52] LABS: HEMATOCRIT 29.1 % (42.0-52.0); HEMOGLOBIN 9.2 gm/dL (14.0-18.0); MCH 24.3 pg (26.0-34.0); MCHC 31.7 g/dL (28.0-37.0); MCV 76.7 fL (80.0-100.0); RBC 3.79 mil/uL (4.50-6.00); RDW 16.9 % (10.5-14.5); WBC 6.8 thou/uL (4.0-11.0)
[2017-04-30 05:04] LABS: CALCIUM 10.1 mg/dL (8.5-10.1); POTASSIUM 4.2 mmol/L (3.5-5.1)
[2017-05-01 04:00] VITALS: BP 130/80
[2017-05-01 06:31] LABS: HEMATOCRIT 30.8 % (42.0-52.0); HEMOGLOBIN 9.7 gm/dL (14.0-18.0); MCH 24.4 pg (26.0-34.0); MCHC 31.6 g/dL (28.0-37.0); RBC 3.99 mil/uL (4.50-6.00); RDW 17.2 % (10.5-14.5); WBC 8.4 thou/uL (4.0-11.0)
[2017-05-01 06:46] LABS: CALCIUM 10.5 mg/dL (8.5-10.1); POTASSIUM 4.2 mmol/L (3.5-5.1)
[2017-05-01 08:00] VITALS: BP 139/64
[2017-05-01] MEDS ORDERED: AUGMENTIN 875-1 EACH PO (08:51)
[2017-05-01] MEDS ORDERED: IRON325 PO (08:51)
[2017-05-01 11:55] VITALS: BP 139/64
== END 2017-05-01 13:10 | disposition home health service (06) | DRG 853 ==
LOC: ER 11:17 → EROBS 13:33 → 3N 13:33 → ENTRNSPT 05-01 13:02 → EDTRNSPTSTS 05-01 13:07 → 3N 05-01 13:10
PROVIDERS: Emergency Medicine; Family Medicine; Internal Medicine Pulmonary Disease
PROC: 30233N1 Transfusion of Nonautologous Red Blood Cells into Peripheral Vein, Percutaneous Approach (ICD-10-PCS; 2017-04-28)
PROC: 0HB0XZZ Excision of Scalp Skin, External Approach (ICD-10-PCS; principal; 2017-04-30)
DX: A41.9 Sepsis, unspecified organism (principal); J96.21 Acute and chronic respiratory failure with hypoxia; J18.9 Pneumonia, unspecified organism; E43 Unspecified severe protein-calorie malnutrition; C91.10 Chronic lymphocytic leukemia of B-cell type not having achieved remission; D80.1 Nonfamilial hypogammaglobulinemia; J44.1 Chronic obstructive pulmonary disease with (acute) exacerbation; J44.0 Chronic obstructive pulmonary disease with (acute) lower respiratory infection; R22.0 Localized swelling, mass and lump, head; R91.8 Other nonspecific abnormal finding of lung field; D50.9 Iron deficiency anemia, unspecified; D63.8 Anemia in other chronic diseases classified elsewhere; I25.10 Atherosclerotic heart disease of native coronary artery without angina pectoris; E83.52 Hypercalcemia; E78.5 Hyperlipidemia, unspecified; Z98.61 Coronary angioplasty status; Z90.49 Acquired absence of other specified parts of digestive tract; Z99.81 Dependence on supplemental oxygen; Z98.42 Cataract extraction status, left eye; Z98.41 Cataract extraction status, right eye; Z88.8 Allergy status to other drugs, medicaments and biological substances; Z87.11 Personal history of peptic ulcer disease; Z87.891 Personal history of nicotine dependence; Z68.20 Body mass index [BMI] 20.0-20.9, adult; Z23 Encounter for immunization
CPT/HCPCS: 10096